=== PATIENT | male | born 1975 | race Caucasian/White ===

== ENCOUNTER 2025-01-24 17:53 | Emergency (ER) | payer BC ==
[2025-01-24 18:42] VITALS: PULSE 83; RESP 14; TEMP 98.7; O2SAT 98
[2025-01-24 18:45] VITALS: BP 144/95
--- NOTE | 2025-01-24 19:04 | ERPHSYRPT ---
- History of Present Illness Time Seen by Provider: 01/24/25 19:04 Source: patient Exam Limitations: no limitations Patient Subjective Stated Complaint: PT HERE FOR PAIN TO RIGHT SHOULDER AFTER FALL OFF TRAMPOLINE YESTERDASY, Triage Nursing Assessment: PT ALERT, WALKED IN HOLDING RIGHT ARM, DOES NOT HAVE FULL RANGE OF MOTION TO RIGHT ARM, STRONG RADIAL PULSE, NAIL BEDS PINK, DENIES ANY OTHER INJURY Allergies/Adverse Reactions: Penicillins Allergy (Verified 01/24/25 18:24) Home Medications: Albuterol 8 gm Mdi Hfa [Ventolin Hfa MDI] 18 gm IH DAILY PRN PRN 01/24/25 [History] Hx Influenza Vaccination/Date Given: No Hx Pneumococcal Vaccination/Date Given: No Immunizations Up to Date: No Travel Risk - International Travel Have you traveled outside of the country in past 3 weeks: No - Emerging Infectious Disease Are you exhibiting symptoms associated with any current EIDs: No - Past Medical History Pertinent Past Medical History: Yes Respiratory History: Asthma - Past Surgical History Past Surgical History: Yes Gastrointestinal: Hernia Repair - Social History Smoking Status: Current every day smoker Exposure to second hand smoke: Yes Drug Use: marijuana - Social Determinants of Health Will the patient participate in the screening: Declined to provide - Nursing Vital Signs Nursing Vital Signs: Initial Vital Signs Temperature 98.7 F 01/24/25 18:30 Pulse Rate 83 01/24/25 18:30 Respiratory Rate 14 01/24/25 18:30 Blood Pressure 137/78 01/24/25 18:30 O2 Sat by Pulse Oximetry 98 01/24/25 18:30 Pain Scale Pain Intensity 9 - Physical Exam SpO2: 98 Ordered Tests: Active Orders 24 hr Category Date Time Status Sling Application STAT Care 01/24/25 19:31 Ordered SCAPULA Stat Exams 01/24/25 18:22 Taken SHOULDER Stat Exams 01/24/25 18:22 Taken UPPER EXTREMITY W/O CONTRAST [CT] Stat Exams 01/24/25 19:32 Ordered Medication Summary Discontinued Medications Generic Name Dose Route Start Last Admin Trade Name Freq PRN Reason Stop Dose Admin Hydrocodone Bitart/Acetaminophen 1 tab 01/24/25 19:31 01/24/25 19:37 Hydrocodone/Apap 5/325 1 Tab Tablet PO 01/24/25 19:32 Not Given STAT ONE Hydrocodone Bitart/Acetaminophen 2 tab 01/24/25 19:31 01/24/25 19:37 Hydrocodone/Apap 5/325 1 Tab Tablet PO 01/24/25 19:32 Not Given SENT HOME W/ PATIENT ONE Hydrocodone Bitart/Acetaminophen Confirm 01/24/25 19:33 Hydrocodone/Apap 5/325 1 Tab Tablet Administered 01/24/25 19:34 Dose 3 tab .ROUTE .STK-MED ONE - Departure Departure [facility] Clinical Impression: Right shoulder pain, Limitation of joint motion of right shoulder Condition: Stable Critical Care Time: No Referrals: DOCTOR,NO FAMILY [Primary Care Provider, UNKNOWN] - Follow up/PCP as directed Instructions: Shoulder Sprain (DC) Prescriptions: Ketorolac Trometh 10 mg Tab [TORAdol 10 MG TABLET] 10 mg PO TID PRN 5 Days #15 tablet PRN Reason: Pain
[2025-01-24] MEDS ORDERED: NORCO 5/325 MG ONE (19:33)
[2025-01-24] MEDS: NORCO 5/325 MG PO ONE ×2 (19:37)
--- NOTE | 2025-01-24 20:44 | XRAY ---
Indication: Pain following trampoline injury. Comparison: None 3 view right shoulder demonstrates osteopenia, minimal AC degenerative arthropathy, and tiny hilar calcified granulomas. No acute bony, articular, or soft tissue abnormalities.
--- NOTE | 2025-01-24 20:44 | XRAY ---
Indication: Pain following trampoline injury. Comparison: None 3 view right scapula demonstrates osteopenia, minimal AC degenerative arthropathy, and tiny hilar calcified granulomas. No acute bony, articular, or soft tissue abnormalities.
== END 2025-01-24 19:45 | disposition left against medical advice (07) ==
LOC: ED 17:53
DX: M25.511 Pain in right shoulder (principal); M25.611 Stiffness of right shoulder, not elsewhere classified; Z79.899 Other long term (current) drug therapy; Z72.0 Tobacco use